=== PATIENT | male | born 1975 | race Caucasian/White ===

== ENCOUNTER 2019-05-26 20:20 | Emergency (ER) | payer SELFPAY ==
[~2019-05-26] VITALS: Ht 185.4 cm; Wt 99.8 kg
[2019-05-26] MEDS ORDERED: ONDANSETRON HCL 4 MG/2 ML VIAL ONE (20:34)
[2019-05-26] MEDS ORDERED: MORPHINE SULFATE 4 MG/ML SYR/VIAL ONE (20:34)
[2019-05-26 20:38] VITALS: BP 136/79
[2019-05-26] MEDS ORDERED: SODIUM CHLORIDE 0.9% 500 ML IV ONE ×2 (20:45→21:15)
[2019-05-26] MEDS ORDERED: MORPHINE SULFATE 4 MG/ML SYR/VIAL IV ONE ×2 (20:45→21:15)
[2019-05-26] MEDS ORDERED: ONDANSETRON HCL 4 MG/2 ML VIAL IV ONE (20:45)
== END 2019-05-26 21:12 | disposition short-term general hospital (02) ==
LOC: EDBD 20:20 → ER 20:27
DX: S89.92XA Unspecified injury of left lower leg, initial encounter (principal); W17.89XA Other fall from one level to another, initial encounter; Y93.89 Activity, other specified; Y99.8 Other external cause status; Y92.89 Other specified places as the place of occurrence of the external cause
CPT/HCPCS: 93005; 96374; 96375; 96376; 99285; J2270; J2405